=== PATIENT | male | born 1970 | race American Indian/Alaskan Native ===

== ENCOUNTER 2018-02-05 20:19 | Emergency (ER) | payer OTHER ==
[2018-02-05 20:29] VITALS: BP 133/86
[2018-02-05] MEDS ORDERED: TYLENOL PO ONE (21:08)
[2018-02-05] MEDS ORDERED: MOTRIN PO ONE (21:08)
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
== END 2018-02-05 21:27 | disposition home or self-care (01) ==
LOC: ED 20:19
DX: M54.2 Cervicalgia (principal); F17.200 Nicotine dependence, unspecified, uncomplicated
CPT/HCPCS: 99282